=== PATIENT | female | born 1950 | race Native Hawaiian/Other Pacific Islander ===

== ENCOUNTER 2016-08-12 19:44 | Emergency (ER) | payer OTHER ==
[2016-08-12 20:18] VITALS: BP 159/106
[2016-08-12] MEDS ORDERED: NACL 0.9% 500 ML IR ONE (21:31)
[2016-08-12] MEDS ORDERED: NORCO 5/325 PO ONE (21:46)
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
[2016-08-12] MEDS ORDERED: BOOSTRIX IM ONE (23:43)
== END 2016-08-13 00:41 | disposition home or self-care (01) ==
LOC: ED 19:44
DX: S60.512A Abrasion of left hand, initial encounter (principal); S70.211A Abrasion, right hip, initial encounter; V03.99XA Pedestrian with other conveyance injured in collision with car, pick-up truck or van, unspecified whether traffic or nontraffic accident, initial encounter; Y93.01 Activity, walking, marching and hiking; Y99.8 Other external cause status; Y92.89 Other specified places as the place of occurrence of the external cause
CPT/HCPCS: 70450; 71020; 72100; 72125; 73521; 90471; 90715

== ENCOUNTER 2018-06-06 15:40 | Emergency (ER) | payer MEDICARE ==
--- NOTE | 2018-06-06 16:42 | Emergency Department Report ---
Blank Doc - Documentation Documentation: Juany taverasinterpreter 67 y/o female with pmh of HTN c/o 3 day history of headache and dizziness with few hour history of chest pain. + sob and pain with resp. Tingling to face and legs. Plan Cxr cardiac evaluation
--- NOTE | 2018-06-06 17:43 | XRay Report ---
FINAL REPORT PROCEDURE: Chest. TECHNIQUE: PA and lateral views. HISTORY: Chest pain. COMPARISON: Chest 08/12/2016. FINDINGS: The heart and mediastinum appear normal. There is mild tortuosity of the thoracic aorta. The lungs ar e clear and mildly hyperinflated. There are no pleural effusions. There is a elongated calcification located posteriorly in the right lower lobe. This may be pleural based. It is consistent with either a large granuloma or a calcified pleural plaque. It is unchanged from the previous study. There are n o pleural effusions. The soft tissues and regional skeleton are unremarkable. IMPRESSION: COPD. Benign calcification in the right lower lobe as described.
[2018-06-06 19:29] LABS: Basophils % (Auto) 0.6 % (0.0-1.8); Eosinophils # (Auto) 0.1 K/mm3 (0.0-0.4); Eosinophils % (Auto) 1.7 % (0.0-4.3); Hematocrit 39.6 % (30.3-42.9); Hemoglobin 13.9 gm/dl (10.1-14.3); Lymphocytes # (Auto) 2.8 K/mm3 (1.2-5.4); Mean Corpuscular HGB Conc 35 % (30-34); Mean Corpuscular Volume 89 fl (79-97); Monocytes # (Auto) 0.4 K/mm3 (0.0-0.8); Monocytes % (Auto) 6.3 % (0.0-7.3); Platelet Count 178 K/mm3 (140-440); Red Blood Count 4.47 M/mm3 (3.65-5.03); Red Cell Distribution Width 13.1 % (13.2-15.2)
[2018-06-06 19:59] LABS: Alanine Aminotransferase 25 units/L (7-56); Albumin 4.4 g/dL (3.9-5); BUN/Creatinine Ratio 15; Blood Urea Nitrogen 9 mg/dL (7-17); Calcium 9.8 mg/dL (8.4-10.2); Hemolysis Index 12
[2018-06-06] MEDS ORDERED: TORADOL IM ONE (20:09)
[2018-06-06] MEDS ORDERED: DUONEB *Not for PRN Use IH ONE (20:10)
[2018-06-06] MEDS ORDERED: DELTASONE PO ONE (20:10)
--- NOTE | 2018-06-06 20:12 | Emergency Department Report ---
ED Chest Pain HPI - General Chief Complaint: Extremity Injury, Upper Stated Complaint: HEADACHE FOR 3DAYS Time Seen by Provider: 06/06/18 16:39 Source: family Mode of arrival: Ambulatory Limitations: Language Barrier - History of Present Illness Initial Comments: This is a 67-year-old female that presents with a headache, dizziness, and weakness for 3 days. Patient reports chest pain is on left side and nonradiating. She reports pain feels like pressure. She also reports some difficulty breathing and with movement and shortness of breath. She denies cough, fever, nausea or vomiting, radiating pain, or diaphoresis. MD Complaint: chest pain Onset/Timin -: days(s) Onset: during rest, during exertion Pain Location: left chest Pain Radiation: none Severity: severe Severity scale (0 -10): 9 Quality: pressure Consistency: intermittent Improves With: nothing Worsens With: exertion, inspiration re: dyspnea Treatments Prior to Arrival: none - Related Data On Oral Contraceptives: No Previous Rx's Medication Instructions Recorded Last Taken Type HYDROcodone/APAP 5-325 [[place] 1 each PO Q6HR PRN #14 tablet 08/12/16 Unknown Rx 5/325] Neomycn/Bacitrc/Polymyx/Pramox 28 gm TP BID #1 oint...g. 08/12/16 Unknown Rx [Triple Antibioti-Pain Rlf Oint] ALBUTEROL Inhaler(NF) [VENTOLIN 1 puff IH Q4-6H PRN #1 inha 06/06/18 Unknown Rx Inhaler(NF)] predniSONE [Deltasone] 40 mg PO QDAY 7 Days #14 tab 06/06/18 Unknown Rx Allergies Allergy/AdvReac Type Severity Reaction Status Date / Time No Known Allergies Allergy Verified 06/06/18 16:43 Heart Score - HEART Score History: Moderately suspicious EKG: Normal Age: 45-65 Risk factors: 1-2 risk factors Troponin: < normal limit HEART Score: 3 ED Review of Systems ROS: Stated complaint: HEADACHE FOR 3DAYS Other details as noted in HPI Constitutional: denies: chills, fever ENT: denies: ear pain, throat pain Respiratory: shortness of breath, SOB with exertion. denies: cough, wheezing Cardiovascular: chest pain. denies: palpitations Endocrine: no symptoms reported Gastrointestinal: denies: abdominal pain, nausea, diarrhea Skin: denies: rash, lesions Neurological: denies: headache, weakness, paresthesias Psychiatric: denies: anxiety, depression ED Past Medical Hx - Past Medical History Previous Medical History?: Yes Hx Hypertension: Yes - Surgical History Past Surgical History?: No - Social History Smoking Status: Never Smoker Substance Use Type: None - Medications Home Medications: Home Medications Medication Instructions Recorded Confirmed Last Taken Type HYDROcodone/APAP 5-325 [[place] 1 each PO Q6HR PRN #14 tablet 08/12/16 Unknown Rx 5/325] Neomycn/Bacitrc/Polymyx/Pramox 28 gm TP BID #1 oint...g. 08/12/16 Unknown Rx [Triple Antibioti-Pain Rlf Oint] ALBUTEROL Inhaler(NF) [VENTOLIN 1 puff IH Q4-6H PRN #1 inha 06/06/18 Unknown Rx Inhaler(NF)] predniSONE [Deltasone] 40 mg PO QDAY 7 Days #14 tab 06/06/18 Unknown Rx ED Physical Exam - General Limitations: Language Barrier General appearance: alert, in no apparent distress - Respiratory Respiratory exam: Present: normal lung sounds bilaterally. Absent: respiratory distress, wheezes, rales, rhonchi, stridor, chest wall tenderness, accessory muscle use, decreased breath sounds, prolonged expiratory - Cardiovascular Cardiovascular Exam: Present: regular rate, normal rhythm. Absent: systolic murmur, diastolic murmur, rubs, gallop - GI/Abdominal GI/Abdominal exam: Present: soft, normal bowel sounds - Neurological Exam Neurological exam: Present: alert, oriented X3 - Psychiatric Psychiatric exam: Present: normal affect, normal mood - Skin Skin exam: Present: warm, dry, intact, normal color. Absent: rash ED Course Vital Signs 06/06/18 06/06/18 16:40 22:01 Temperature 97.8 F Pulse Rate 64 64 Respiratory 16 16 Rate Blood Pressure 137/72 Blood Pressure 122/56 [Left] O2 Sat by Pulse 100 100 Oximetry ED Medical Decision Making - Lab Data Result diagrams: 06/06/18 19:00 06/06/18 19:00 Lab Results 06/06/18 06/06/18 06/06/18 Range/Units 19:00 19:00 23:07 WBC 6.8 (4.5-11.0) K/mm3 RBC 4.47 (3.65-5.03) M/mm3 Hgb 13.9 (10.1-14.3) gm/dl Hct 39.6 (30.3-42.9) % MCV 89 (79-97) fl MCH 31 (28-32) pg MCHC 35 H (30-34) % RDW 13.1 L (13.2-15.2) % Plt Count 178 (140-440) K/mm3 Lymph % (Auto) 41.0 H (13.4-35.0) % Wilcox % (Auto) 6.3 (0.0-7.3) % Eos % (Auto) 1.7 (0.0-4.3) % Baso % (Auto) 0.6 (0.0-1.8) % Lymph # 2.8 (1.2-5.4) K/mm3 Wilcox # 0.4 (0.0-0.8) K/mm3 Eos # 0.1 (0.0-0.4) K/mm3 Baso # 0.0 (0.0-0.1) K/mm3 Seg Neutrophils % 50.4 (40.0-70.0) % Seg Neutrophils # 3.4 (1.8-7.7) K/mm3 Sodium 138 (137-145) mmol/L Potassium 4.2 (3.6-5.0) mmol/L Chloride 97.2 L (98-107) mmol/L Carbon Dioxide 28 (22-30) mmol/L Anion Gap 17 mmol/L BUN 9 (7-17) mg/dL Creatinine 0.6 L (0.7-1.2) mg/dL Estimated GFR > 60 ml/min BUN/Creatinine Ratio 15 % Glucose 90 (65-100) mg/dL Calcium 9.8 (8.4-10.2) mg/dL Total Bilirubin 0.40 (0.1-1.2) mg/dL AST 28 (5-40) units/L ALT 25 (7-56) units/L Alkaline Phosphatase 94 (35-129) units/L Troponin T < 0.010 < 0.010 (0.00-0.029) ng/mL Total Protein 7.2 (6.3-8.2) g/dL Albumin 4.4 (3.9-5) g/dL Albumin/Globulin Ratio 1.6 % Lipase 54 (13-60) units/L - EKG Data -: No EKG Interpreted by Me (EKG interpreted by the attending) EKG shows normal: sinus rhythm Rate: normal (no STEMI) - Radiology Data Radiology results: report reviewed FINAL REPORT PROCEDURE: Chest. TECHNIQUE: PA and lateral views. HISTORY: Chest pain. COMPARISON: Chest 08/12/2016. FINDINGS: The heart and mediastinum appear normal. There is mild tortuosity of the thoracic aorta. The lungs are clear and mildly hyperinflated. There are no pleural effusions. There is a elongated calcification located posteriorly in the right lower lobe. This may be pleural based. It is consistent with either a large granuloma or a calcified pleural plaque. It is unchanged from the previous study. There are no pleural effusions. The soft tissues and regional skeleton are unremarkable. IMPRESSION: COPD. Benign calcification in the right lower lobe as described. - Medical Decision Making 67 y.o. female that presents with headache, SOB and chest tightness 3 days. History of hypertension. Vitals stable and in no acute distress. Given Toradol, duoneb treatment once and prednisone 40 mg po once in ER. Patient reports feeling better. All labs are unremarkable. Chest x-ray obtained and dictated by radiologist. COPD. Benign calcification in the right lower lobe as described. Patient states she is only seen in Dr. Bustillos who is a pre sales systems engineer. COPD exacerbation, Start albuterol and prednisone. Referral to diesel tractor engine mechanic. Discharged home stable. Encouraged to do supportive care for URI. No medication ordered. Instructed to follow up with primary care provider. Critical care attestation.: If time is entered above; I have spent that time in minutes in the direct care of this critically ill patient, excluding procedure time. ED Disposition Clinical Impression: Left-sided chest pain COPD (chronic obstructive pulmonary disease) Qualifiers: COPD type: COPD with acute exacerbation Qualified Code(s): J44.1 - Chronic obstructive pulmonary disease with (acute) exacerbation Migraine Qualifiers: Migraine type: without aura Status migrainosus presence: with status migrainosus Intractability: not intractable Qualified Code(s): G43.001 - Migraine without aura, not intractable, with status migrainosus Disposition: - TO HOME OR SELFCARE Is pt being admited?: No Does the pt Need Aspirin: No Condition: Stable Instructions: Chest Pain (ED), Chronic Obstructive Pulmonary Disease (ED) Additional Instructions: Comunquese con boss proveedor de atencin primaria si experimentar fiebre, empeoramiento de boss estado respiratorio ms all de la variacin diaria habitual y / o un aumento significativo en la produccin de moco. Omer un seguimiento con boss proveedor de atencin primaria dentro de la prxima semana. Hay shahid referencia a un neumlogo para hacer un seguimiento de boss enfermedad pulmonar. Caleb medicamentos al inicio del dolor de penny. La ingesta moderada de cafena. Coma a la hora programada o 3 comidas al da con bocadillos. Volver a la kirby de emergencias es fiebre, falta de aire o dolor en el pecho. Contact her primary care provider if he will experience fever, worsening of your respiratory status beyond usual day-to-day variation, and/or a significant increase in production of mucus. Follow-up with your primary care provider within the next week. There is a referral to a diesel tractor engine mechanic to follow-up regarding your lung disease. Take medication at start of headache. Moderate caffeine intake. Eat at scheduled times or 3 meals a day with snacks. Return to the emergency room is fever, increased shortness of breath or chest pain. Prescriptions: ALBUTEROL Inhaler(NF) [VENTOLIN Inhaler(NF)] 1 puff IH Q4-6H PRN #1 inha PRN Reason: Shortness Of Breath predniSONE [Deltasone] 40 mg PO QDAY 7 Days #14 tab Referrals: [facility] [Outside] - 3-5 Days JAMAL RODRIGUEZ MD [Staff Physician] - 3-5 Days [place] ADRIEL BOND MD [Primary Care Provider] - 3-5 Days RADHA BUSTILLOS MD [Referring] - 3-5 Days Time of Disposition: 23:05
[2018-06-07 00:15] VITALS: BP 137/70
== END 2018-06-07 00:05 | disposition home or self-care (01) ==
LOC: ED 15:40
DX: J44.1 Chronic obstructive pulmonary disease with (acute) exacerbation (principal); G43.001 Migraine without aura, not intractable, with status migrainosus; I10 Essential (primary) hypertension
CPT/HCPCS: 36415; 71046; 80053; 83690; 84484; 85025; 93005; 93010; 96372; 99284; J1885; J7512